=== PATIENT | female | born 1995 | race Caucasian/White ===

== ENCOUNTER 2017-04-21 08:10 | Emergency (ER) | payer OTHER ==
[2017-04-21] MEDS ORDERED: Sodium Chloride 0.9% 10 ML Syringe FLUSH PRN (08:34)
[2017-04-21] MEDS ORDERED: Acetaminophen 325 MG Tab PO ONE (08:36)
--- NOTE | 2017-04-21 08:40 | EDM.PDOC ---
ED HPI GENERAL MEDICAL PROBLEM - General Chief Complaint: Abdominal Pain Stated Complaint: ABDOMINAL PAIN Time Seen by Provider: 04/21/17 08:28 Source of Information: Reports: Patient, RN Notes Reviewed - History of Present Illness INITIAL COMMENTS - FREE TEXT/NARRATIVE: 21-year-old female that awakened with quite severe sharp lower pelvic discomfort about one hour ago. She had been feeling totally fine yesterday with no abnormal symptoms. Anus lower mid pelvis sharp without radiation. She states she has an IUD and has not been getting menstrual periods. No vaginal bleeding or discharge at this time. No voiding symptomatology. No fever chills nausea or vomiting. He was quite severe at home. She is here in the ED, resting on the caught the pain has subsided and now almost gone. Pelvic Pain Score (Numeric/FACES): 7 - Related Data Allergies Allergy/AdvReac Type Severity Reaction Status Date / Time No Known Allergies Allergy Verified 04/21/17 08:22 Home Meds: Home Meds Betamethasone/Clotrimazole [Lotrisone] 1 applic TOP BID 04/21/17 [History] Cephalexin [Keflex] 500 mg PO QID 04/21/17 [History] Fluconazole [Diflucan] 150 mg PO ONETIME 04/21/17 [History] ISOtretinoin [Isotretinoin] 40 mg PO DAILY 04/21/17 [History] Ibuprofen [Motrin Ib] 200 mg PO Q4H PRN 04/21/17 [History] Sulfamethoxazole/Trimethoprim [Bactrim Ds Tablet] 1 tab PO BID 04/21/17 [History ] Past Medical History - Past Health History Medical/Surgical History: Denies Medical/Surgical History Social & Family History - Tobacco Use Smoking Status *Q: Never Smoker - Caffeine Use Caffeine Use: Reports: Coffee - Recreational Drug Use Recreational Drug Use: No ED ROS GENERAL - Review of Systems Review Of Systems: See Below Constitutional: Denies: Fever, Chills, Diaphoresis HEENT: Reports: No Symptoms Respiratory: Denies: Shortness of Breath, Pleuritic Chest Pain Cardiovascular: Denies: Chest Pain GI/Abdominal: Reports: Abdominal Pain (Lower mid pelvis). Denies: Diarrhea, Nausea, Vomiting : Reports: No Symptoms Musculoskeletal: Denies: Back Pain Skin: Reports: No Symptoms Neurological: Reports: No Symptoms ED EXAM, RENAL/ - Physical Exam Exam: See Below General Appearance: Alert, No Apparent Distress Eye Exam: Bilateral Eye: PERRL Throat/Mouth: Normal Inspection Head: No: Facial Swelling Neck: Supple, Full Range of Motion Respiratory/Chest: No Respiratory Distress, Lungs Clear, Normal Breath Sounds Cardiovascular: Regular Rate, Rhythm GI/Abdominal: Soft, Tender (Mild diffuse tenderness lower abdomen and pelvis). No: Guarding, Rebound Back Exam: No: CVA Tenderness (L), CVA Tenderness (R) Extremities: Normal Inspection, Normal Range of Motion Neurological: Alert, Oriented, No Motor/Sensory Deficits Skin Exam: Warm, Dry, Normal Color Course - Vital Signs Last Recorded V/S: Last Vital Signs Temp 97.4 F 04/21/17 08:17 Pulse 80 04/21/17 08:17 Resp 16 04/21/17 08:17 BP 117/68 04/21/17 08:17 Pulse Ox 99 04/21/17 08:17 - Orders/Labs/Meds Orders: Active Orders 24 hr Category Date Time Status Peripheral IV Care [RC] . DIRECTED Care 04/21/17 08:35 Active UA W/MICROSCOPIC [URIN] Stat Lab 04/21/17 08:35 Uncollected Sodium Chloride 0.9% [Saline Flush] Med 04/21/17 08:34 Active 10 ml FLUSH ASDIRECTED PRN Peripheral IV Insertion Adult [OM.PC] Stat Oth 04/21/17 08:35 Ordered Medication Orders Sodium Chloride (Saline Flush) 10 ml FLUSH ASDIRECTED PRN PRN Reason: Keep Vein Open Labs: Laboratory Tests 04/21/17 04/21/17 04/21/17 Range/Units 08:45 08:45 08:45 WBC 6.72 (3.98-10.04) K/mm3 RBC 4.55 (3.98-5.22) M/mm3 Hgb 14.0 (11.2-15.7) gm/L Hct 40.8 (34.1-44.9) % MCV 89.7 (79.4-94.8) fl MCH 30.8 (25.6-32.2) pg MCHC 34.3 (32.2-35.5) g/dl RDW Std Deviation 41.7 (36.4-46.3) fL Plt Count 228 (182-369) K/mm3 MPV 9.9 (9.4-12.3) fl Neut % (Auto) 63.5 (34.0-71.1) % Lymph % (Auto) 28.7 (19.3-51.7) % Bowman % (Auto) 6.1 (4.7-12.5) % Eos % (Auto) 1.3 (0.7-5.8) Baso % (Auto) 0.3 (0.1-1.2) % Neut # (Auto) 4.26 (1.56-6.13) K/mm3 Lymph # (Auto) 1.93 (1.18-3.74) K/mm3 Bowman # (Auto) 0.41 H (0.24-0.36) K/mm3 Eos # (Auto) 0.09 (0.04-0.36) K/mm3 Baso # (Auto) 0.02 (0.01-0.08) K/mm3 C-Reactive Protein < 0.2 (<1.0) mg/dL HCG, Qual Negative (NEGATIVE) Meds: Medications Generic Name Dose Route Start Last Admin Trade Name Freq PRN Reason Stop Dose Admin Sodium Chloride 10 ml 04/21/17 08:34 Saline Flush FLUSH ASDIRECTED PRN Keep Vein Open Discontinued Medications Generic Name Dose Route Start Last Admin Trade Name Freq PRN Reason Stop Dose Admin Acetaminophen 975 mg 04/21/17 08:36 04/21/17 08:53 Tylenol PO 04/21/17 08:37 975 mg NOW ONE Administration - Re-Assessments/Exams Free Text/Narrative Re-Assessment/Exam: 04/21/17 09:48 White blood count, C-reactive protein normal, hCG negative. Does feel much better from prior to arriving to ED when the pelvic pain was very severe. Discussed option of checking pelvic ultrasound at this time. With treatment likely going to be symptomatic she is comfortable going home, alternating Tylenol ibuprofen, she will return if the pain does once again get much more severe. Departure - Departure Time of Disposition: 09:49 Disposition: Home, Self-Care 01 Condition: Fair Clinical Impression: Pelvic pain - Discharge Information Referrals: PCP,None [Primary Care Provider] - Forms: ED Department Discharge, ED Return to Work/School Form Additional Instructions: Rest, light activity today as tolerated, drink plenty of water to maintain hydration. Symptoms and findings suggest that this could be an ovarian cyst or even a ruptured ovarian cyst. Treatment usually is symptomatic. Alternate Tylenol and ibuprofen as needed for discomfort. Follow-up clinic if not much better within 2-3 days as expected, return to ED as needed if symptoms worsening in any way. - My Orders Last 24 Hours: My Active Orders 04/21/17 08:34 Sodium Chloride 0.9% [Saline Flush] 10 ml FLUSH ASDIRECTED PRN 04/21/17 08:35 Peripheral IV Care [RC] . DIRECTED UA W/MICROSCOPIC [URIN] Stat Peripheral IV Insertion Adult [OM.PC] Stat - Assessment/Plan Last 24 Hours: My Active Orders 04/21/17 08:34 Sodium Chloride 0.9% [Saline Flush] 10 ml FLUSH ASDIRECTED PRN 04/21/17 08:35 Peripheral IV Care [RC] . DIRECTED UA W/MICROSCOPIC [URIN] Stat Peripheral IV Insertion Adult [OM.PC] Stat
== END 2017-04-21 10:12 | disposition home or self-care (01) ==
LOC: JD.ED 08:10
DX: R10.2 Pelvic and perineal pain (principal); Z79.899 Other long term (current) drug therapy
CPT/HCPCS: 36415; 84703; 85025; 86140; 99284; A9270